=== PATIENT | female | born 1950 | race Caucasian/White ===

== ENCOUNTER → 2017-12-17 | Outpatient (CLI) | payer MEDICARE, OTHER ==
--- NOTE | 2017-12-21 11:19 | RADIOLOGY IMAGING REPORT ---
FACILITY: [facility] PATIENT NAME: WENDI RANDALL : [id number] MR: [id number] V: [id number] EXAM DATE: [id number] ORDERING PHYSICIAN: ELIANE JOHNS TECHNOLOGIST: Ivonne Granados PROCEDURE:BILATERAL DIGITAL SCREENING MAMMOGRAM WITH CAD ASSISTED INTERPRETATION & 3D TOMOSYNTHESIS COMPARISON:Prior mammograms 11/23/16 & 11/05/15. INDICATIONS:SCREENING FINDINGS: The breast tissue is heterogeneously dense. There is no dominant mass, suspicious cluster of microcalcifications or persistent areas of architectural distortion. DIAGNOSTIC CATEGORY 1--NEGATIVE. RECOMMENDATIONS: ROUTINE MAMMOGRAM AND CLINICAL EVALUATION IN 1 YEAR. IMPRESSION: BIRADS 1: Negative. Dictated by: Gabino Hernandez M.D. on 12/21/2017 at 9:39 Transcribed by: YOANA on 12/21/2017 at 10:00 Approved by: Gabino Hernandez M.D. on 12/21/2017 at 11:18 [facility]
== END ==
LOC: MAMO 03:37
PROVIDERS: ATTEND Family Medicine
DX: Z12.31 Encounter for screening mammogram for malignant neoplasm of breast (principal)
CPT/HCPCS: 77063; 77067

== ENCOUNTER → 2018-12-29 | Outpatient (CLI) | payer MEDICARE, OTHER ==
--- NOTE | 2018-12-29 18:01 | RADIOLOGY IMAGING REPORT ---
[place] [facility] [place] NAME: Alyssa Lovell : 1950 MR: [id number] V: [id number] EXAM DATE: ORDERING PHYSICIAN: ELIANE JOHNS TECHNOLOGIST: Location: [facility] Patient: Alyssa Lovell : 1950 Visit/Account:[id number] Date of Sevice: 12/29/2018 EXAMINATION: Left Lower Extremity Venous Ultrasound HISTORY: Left leg swelling and bruising TECHNIQUE: Ultrasound evaluation of the left lower extremity veins was performed with color and spec tral Doppler and compression views. COMPARISON: None. FINDINGS: The left common femoral, femoral, proximal deep femoral, popliteal, and segmentally visualized deep c pretty veins are patent and compressible, without evidence of intraluminal thrombus. The visualized upp er greater saphenous vein is patent. IMPRESSION: Normal exam. No evidence of DVT in the left leg. Report Dictated By: Kushal Reyna MD at 12/29/2018 5:51 PM Report E-Signed By: Kushal Reyna MD at 12/29/2018 5:53 PM WSN:[id number]
== END ==
LOC: RAD 16:27
PROVIDERS: ATTEND Family Medicine
DX: M25.562 Pain in left knee (principal)

== ENCOUNTER → 2019-01-17 | Outpatient (CLI) | payer MEDICARE, OTHER ==
--- NOTE | 2019-01-17 13:46 | RADIOLOGY IMAGING REPORT ---
FACILITY: [facility] - [place] PATIENT NAME: Alyssa Lovell : 1950 MR: [id number] V: [id number] EXAM DATE: ORDERING PHYSICIAN: ELIANE JOHNS TECHNOLOGIST: [place] [facility] [place]: Alyssa Lovell : 1950 Visit/Account:[id number] Date of Sevice: 01/17/2019 KNEE 3 VIEW LEFT HISTORY: Fell on left knee 3 and half weeks ago. Medial pain. COMPARISON: None. TECHNIQUE: AP, oblique, and lateral views of the left knee. FINDINGS: There is no fracture or dislocation. No joint effusion. IMPRESSION: 1. No acute osseous abnormality of the left knee. Report Dictated By: Koki Peterson at 01/17/2019 1:35 PM Report E-Signed By: Koki Peterson at 01/17/2019 1:36 PM WSN:[id number]
--- NOTE | 2019-01-17 13:47 | RADIOLOGY IMAGING REPORT ---
[place] [facility] [place]: Alyssa Lovell : 1950 MR: [id number] V: [id number] EXAM DATE: ORDERING PHYSICIAN: ELIANE JOHNS TECHNOLOGIST: Location: [facility] Patient: Alyssa Lovell : 1950 Visit/Account:[id number] Date of Sevice: 01/17/2019 ANKLE 3 VIEW MIN LEFT HISTORY: Fell on left knee 3.5 weeks ago. Pain in medial left knee and ankle. COMPARISON: None. TECHNIQUE: AP, mortise, and lateral views of the left ankle. FINDINGS: There is no fracture or dislocation. The mortise joint is symmetric. The talar dome is inta ct. There is a plantar calcaneal spur. IMPRESSION: 1. No acute osseous abnormality of the left ankle. Report Dictated By: Koki Peterson at 01/17/2019 1:38 PM Report E-Signed By: Koki Peterson at 01/17/2019 1:39 PM WSN:[id number]
--- NOTE | 2019-01-18 11:42 | RADIOLOGY IMAGING REPORT ---
FACILITY: [facility] - [place] PATIENT NAME: WENDI RANDALL : [id number] MR: [id number] V: [id number] EXAM DATE: ORDERING PHYSICIAN: ELIANE JOHNS TECHNOLOGIST: Sarah Forrester PROCEDURE: BILATERAL DIGITAL SCREENING MAMMOGRAM WITH CAD ASSISTED INTERPRETATION & 3D TOMOSYNTHESIS REASON FOR STUDY: Screening. FAMILY HISTORY OF BREAST CANCER: Maternal grandmother & mother at age 82. BREAST PROCEDURES/TREATMENTS: None. COMPARISON: 12/17/17, 12/28/16, 11/23/16, 11/05/15, 09/03/14, 09/01/13. VIEWS OBTAINED: Bilateral 2D & 3D full field CC & MLO projections. BREAST DENSITY: The breasts are heterogeneously dense which can obscure small masses. MAMMOGRAM FINDINGS: The parenchymal pattern has remained stable allowing for difference in mammographic technique & patient positioning. IMPRESSION: BIRADS 1: Negative. DIAGNOSTIC CATEGORY 1--NEGATIVE. RECOMMENDATIONS: ROUTINE MAMMOGRAM AND CLINICAL EVALUATION. Dictated by: Daphne Holley M.D. on 01/17/2019 at 16:35 Transcribed by: YOANA on 01/18/2019 at 11:14 Approved by: Daphne Holley M.D. on 01/18/2019 at 11:37 [facility]
== END ==
LOC: MAMO 01:15
PROVIDERS: ATTEND Family Medicine
DX: Z12.31 Encounter for screening mammogram for malignant neoplasm of breast (principal); M25.462 Effusion, left knee
CPT/HCPCS: 77063; 77067